=== PATIENT | female | born 1970 ===

== ENCOUNTER → 2017-01-03 | Outpatient (REF) ==
--- NOTE | 2017-01-03 14:09 | REP ---
Clinical: Pain and disability. Technique: AP, lateral, cone down views of the lumbosacral spine. Findings: Alignment is maintained. There is no evidence for acute fracture / compression injury or subluxation. Mild to early moderate multilevel degenerative changes include anterior spurring, endplate sclerosis and disc space narrowing at multiple levels. Hypertrophic facet changes at L5-S1 also identified. Impression: Mild to early moderate multilevel degenerative changes. If the patient remains symptomatic consider MRI for further investigation. Signed by Zev Tee MD 01/03/2017 02:00 P
== END ==
LOC: M SMT 13:01
PROVIDERS: ATTEND Internal Medicine
DX: Z02.1 Encounter for pre-employment examination (principal)